=== PATIENT | female | born 1940 | race Caucasian/White ===

== ENCOUNTER 2024-02-09 07:46 | Outpatient (CLI) | payer MEDICARE, SELFPAY ==
--- NOTE | 2024-02-09 08:01 | CT_ITS ---
WS: [id number] CT HEAD NONCONTRAST HISTORY: SHORT TERM MEMORY LOSS TECHNIQUE: Contiguous axial imaging performed through the brain. Bone and soft tissue windows. Sagitt al and coronal reformats reviewed. All CT scans at [facility] use at least one of these dose optimization techniques: automated exposure control; mA and/or kV adjustment per patient size (includ es targeted exams where dose is matched to clinical indication); or iterative reconstruction. DLP: 1149.98 mGy.cm COMPARISON: 02/06/2018 No acute intracranial hemorrhage, midline shift or mass effect. Mild to moderate bilateral symmetric atrophy with progression since 02/06/2018. Moderate areas of decre ased attenuation in the white matter have also progressed since the prior exam. No large territory in farct. Mild cerebellar atrophy. Ventricles: Normal size with no hydrocephalus. No inferior displacement of the cerebellar tonsils. Paranasal sinuses: As visualized are clear. Mastoid air cells: Well pneumatized. Calvarium and scalp: Skull is intact with no soft tissue edema or swelling. Advanced atherosclerotic calcified plaque in the intracranial carotid arteries. CT/CT head wo con* [id number] IMPRESSION: 1. No acute intracranial hemorrhage or edema. 2. Mild to moderate symmetric cerebral and cerebellar atrophy has progressed s anusha 2018. 3. Moderate progression of small vessel ischemic changes in the white matter.
== END 2024-02-09 07:47 | disposition home or self-care (01) ==
LOC: RAD 07:48
PROVIDERS: Family Provider Family Medicine; PCP Family Medicine; Visit Provider Family Medicine
DX: G31.9 Degenerative disease of nervous system, unspecified (principal); I67.82 Cerebral ischemia; R41.3 Other amnesia; H34.8110 Central retinal vein occlusion, right eye, with macular edema
CPT/HCPCS: 70450

== ENCOUNTER 2024-06-14 13:56 | Emergency (ER) | payer MEDICARE, SELFPAY ==
[2024-06-14 13:57] VITALS: BP 104/72; PULSE 79; RESP 16; TEMP 36.7; O2SAT 94; BMI 37.8
[2024-06-14] MEDS: oxymetazoline 0.05% Nasal Spray 15 mL 2 SPRAY NOSTRIL-B (14:16)
--- NOTE | 2024-06-14 14:16 | W.ED.EPISTAX ---
HPI - Epistaxis General: Chief complaint: Epistaxis Stated complaint: nose bleed Time Seen by Provider: 06/14/24 14:00 Source: patient and family Mode of arrival: ambulatory Limitations: no limitations History of Present Illness: Patient is an 83-year-old female presents to ED today for evaluation of epistaxis that began just prior to arrival. No known injury or trauma. States she has had nosebleeds in the past that resolved conservatively. She is not hypertensive upon arrival. She has had no headache. No fever. No recent illness. Significant other states 2 days ago she did have a minor fall while in her garden but states she fell more onto her left hip and leg and did not injure anything as she has been ambulatory without difficulty or assistance since the fall. She denies striking her head/face. MD complaint: epistaxis Location: left nostril Onset (ago): hour(s) Duration: constant Context: history of previous Associated symptoms: Reports no associated symptoms; Deny fever(s), headache(s), sinus pain or vomiting Treatment prior to arrival: nose pinching Related Data Home Medications ?Medication ?Instructions ?Recorded ?Confirmed dorzolamide 22.3 mg-timolol 6.8 1 drp ophthalmic (eye) BID 06/14/24 06/14/24 mg/mL eye drops latanoprost 0.005 % eye drops 1 drp ophthalmic (eye) QPM 06/14/24 06/14/24 lisinopril 10 mg tablet 10 mg PO DAILY 06/14/24 06/14/24 Allergies Allergy/AdvReac Type Severity Reaction Status Date / Time No Known Allergies Allergy Verified 06/14/24 14:03 Review of Systems Const: Denies: fever(s), chills, body aches, fatigue or malaise Eyes: Denies: change in vision, blurry vision, photophobia, floaters or seeing flashes ENMT: Reports: epistaxis; Denies: throat pain, uvular edema, enlarged tonsils, odynophagia, mouth pain, swelling of lips/tongue, oral sores, bleeding gums, dental pain, ear or mastoid pain, ear discharge, nasal congestion or sinus pain Card: Denies: chest pain Resp: Denies: dyspnea GI: Denies: nausea or vomiting Musc: Denies: neck pain, back pain, extremity pain, extremity swelling or joint swelling Neuro: Denies: headache(s) or dizziness Physical Exam Const: COMMON NORMALS: no acute distress, patient oriented x3, no limitations, alert and well nourished GENERAL APPEARANCE: cooperative ORIENTATION/CONSCIOUSNESS: Yes awake, Yes oriented to person, Yes oriented to place and Yes oriented to time HENMT: COMMON NORMALS: normocephalic, atraumatic and Normal external nose present HEAD & SCALP: normal to inspection, normocephalic and atraumatic FACE & SINUS: normal facial exam NOSE: Normal external nose present, Normal septum present and Epistaxis present on the left anterior source and active bleeding MOUTH: Normal oral and palatal mucosa present, lip normal, tongue normal and Normal salivary glands and ducts present THROAT: posterior oropharynx normal and tonsils normal; no uvular edema Eye: GENERAL EYE: appearance normal, both eyes and all related structures Neck/C-Spine: GENERAL: Yes normal visual inspection, No anterior neck swelling and No submandibular swelling Resp: COMMON NORMALS: normal respiratory effort and clear to auscultation bilaterally AUSCULTATION: clear to auscultation bilaterally Cardio: COMMON NORMALS: regular rate and regular rhythm RATE: regular rate RHYTHM: regular rhythm Extremity: GENERAL: Yes normal exam except as noted Neuro: RUDDY COMA SCALE: document GCS findings Ruddy coma scale eye opening: Spontaneous Erwin coma scale verbal response: Orientated Ruddy coma scale motor response: Obey commands Erwin coma scale total score: 15 COMMON NORMALS: patient oriented x3, CN's II-XII intact bilaterally, moves all extremities, no focal motor deficits, no sensory deficits noted and gait normal SENSORIUM/ORIENTATION: Yes alert, Yes oriented to person, Yes oriented to place and Yes oriented to time Procedures Epistaxis Control Nostril: left Nose Prepped With: oxymetazoline Direct Inspection: yes and anterior source identified Clots Removed by: blowing nose Cautery Used: none Device Inserted: hemostatic balloon Patient Tolerated Procedure: well Course Vital Signs: Vital signs: Vital Signs Temperature 98.0 F 06/14/24 13:57 Pulse Rate 79 06/14/24 13:57 Respiratory Rate 16 06/14/24 13:57 Blood Pressure 104/72 06/14/24 13:57 Pulse Oximetry 94 06/14/24 13:57 Oxygen Delivery Me thod Room Air 06/14/24 13:57 MDM - Epistaxis Medical Decision Making Bleeding stopped here after hemostatic balloon placed. She was watched for 30+ mintues and no further bleeding. Will leave balloon in place 72 hours and then she can have this removed. Return precautions discussed. Differential Diagnosis Likely anterior epistaxis Medical Records I reviewed the patient's medical records. No radiology studies performed this visit Discharge Plan Discharge Patient Disposition: Home Clinical Impression: Epistaxis Condition: Stable Prescriptions: No Action latanoprost 0.005 % drops 1 drp ophthalmic (eye) QPM lisinopril 10 mg tablet 10 mg PO DAILY dorzolamide-timolol 22.3-6.8 mg/mL drops 1 drp ophthalmic (eye) BID Discharge Orders: Discharge ED (Routine); Ordered 06/14/24 Ordered By: Anabell Navarro Referrals: Gilberto Clemens MD [Primary Care Provider, Family Practice] Tim Schuster DO [Family Provider, Emergency Medicine] Patient Instructions: Nosebleed (ED), Epistaxis - Adult Activity Restrictions/Additional Instructions: As we discussed, nasal packing needs to stay in over the next 72 hours. It can then removed at that time. Primary care can do this or it also may be able to be completed through a walk-in clinic. You may also return to the emergency department for this service. She may return sooner for any further bleeding that she cannot get controlled at home or any other concerns she may have. Print Language: [place] Citizen Coding Level of Care Code ED Garment Presser for Magy Macias
[2024-06-14 16:02] VITALS: BP 207/119; PULSE 87; RESP 16; O2SAT 94
== END 2024-06-14 16:02 | disposition home or self-care (01) ==
PROVIDERS: Emergency Provider Physician Assistant; Family Provider Family Medicine; PCP Family Medicine
DX: R04.0 Epistaxis (principal)
CPT/HCPCS: 99283; 99291; J9999

== ENCOUNTER 2024-12-15 03:48 | Emergency (ER) | payer MEDICARE, SELFPAY ==
--- OUTSIDE RECORDS SUMMARY | 2024-12-15 03:56 | XMS_ITS | Data Portability ---
[facility] Address [address] [address] Care Team Providers Care Microbiology Director Name Role Phone ANDREW WIN Primary Care Provider Assessment No assessment recorded. Plan of Treatment Reminders Order Date Submit Date Provider Last Modified By Organization Details Last Modified Time Details Appointments None recorded. Lab None recorded. Referral calender worker helper referral [address] [place] [address] Podiatry, [address] [place] [address], [phone], 5 12:28:46 Procedures None recorded. Surgeries None recorded. Imaging XR, ankle, 3 or more view [address] [place] [address] ([facility]), [address] [place] [address], [phone], 5 07:36:13 XR, foot, 3 or more view [address] [place] [address], [address] [place] [address], [phone], 5 16:56:16 Medication Orders None recorded. Patient TargetsNo targets recorded. Patient InstructionsNo instructions recorded. Reason for Referral Program Manager Environmental Planning Referral for Pain in left foot Referring Physician: Dayanara Charles, Family Medicine, Encounter Date: 06/25/2024 Results Created Date Observation Date Name Description Value Unit Range Abnormal Flag Note LastModifiedBy Organization Detail LastModifiedTime 06/26/19 25 XR, ankle , 3 or more view No observ ation record ed. [facility] ([facility]) [address] [place], [address], 06/25/2024 11:34:08 06/26/19 25 06/25/2024 XR, foot, 3 or more view No observ ation record ed. [address] [place], [address], 06/26/2024 10:08:05 06/26/19 25 06/25/2024 XR, foot, 3 or more view No observ ation record ed. [address] [place], [address], 06/26/2024 10:08:06 Result Notes None recorded. Problems Name Problem SNOMED Code Status Onset Date Resolution Date Notes Provider Name and Address Organization Details Recorded Time Total hysterect charlene Active 2005 Hysterecto my, Total; r/t endometrio sis s; 08/10/2005 2:56PM by Poly Beaver LPN, Office Visit; Promoted; acuity set as *; Not Available [facility] 3 03:10:49 Asthma 196599676 Active 2005 Asthma; 08/10/2005 2:56PM by Sanjeev Fatima MD, Office Visit; Promoted; acuity set as *; Not Available [facility] 3 03:10:49 Gastroeso phageal reflux disease 356746190 Active 2005 Esophageal Reflux; 08/10/2005 2:56PM by Poly Beaver LPN, Office Visit; Promoted; acuity set as *; Not Available [facility] 3 03:10:49 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 Medical Equipment None Reported. Allergies Allergen ID Allergen Name Allergen Category Reaction Reaction Severity Criticality Documentation Date Start Date Code Code System Note Provider Name and Address Organization Details Recorded Time 62490 aspirin medicatio n other Not available Not available 09/03/2022 1191 RxNorm React ion: HX of Ulcer ; Comme nt: Recor ded 09/21 3:44P M by Lisa Mann LPN, Offic e Visit ; Rony calix; Carlos grover ce: *; ; Not Available [facility] 3 02:23:54 Medications Name Sig Start Date Stop Date Status Note LastModified by Organization Details LastModified Time doxycyclin e hyclate 100 mg capsule two times daily 06/25 completed Recorded 1 8:43AM by KENDALL Corbin, Historica l Summary; Refill Quantity: 0; Not Available Not Available Not Available prednisone 20 mg tablet two times daily 06/25 completed Recorded 1 8:44AM by KENDALL Corbin, Historica l Summary; Refill Quantity: 0; Not Available Not Available Not Available Synthroid 50 mcg tablet QD 2004 active Recorded 8 3:45PM by Luís Mann LPN, Office Visit; Refill Quantity: 90; Tab; Not Available Not Available Not Available Spiriva with HandiHaler 18 mcg and inhalation capsules QD 2004 active Recorded 8 3:45PM by Luís Mann LPN, Office Visit; Refill Quantity: 90; Cap; Not Available Not Available Not Available Aleve daily 06/25 completed 0; Recorded 8 3:52PM by Luís Mann LPN, Office Visit; Not Available Not Available Not Available Lipitor QD 2004 active Recorded 8 3:45PM by Luís Mann LPN, Office Visit; Refill Quantity: 90; Tab; Not Available Not Available Not Available Prilosec QD active Recorded 8 3:45PM by Luís Mann LPN, Office Visit; Refill Quantity: 0; Not Available Not Available Not Available Combivent QID/AL N 2003 active Recorded 5 2:44PM by Sanjeev Fatima MD, Office Visit; Refill Quantity: 3; Aerosol; Not Available Not Available Not Available Micardis HCT QD 2004 active Recorded 5 2:44PM by Sanjeev Fatima MD, Office Visit; Refill Quantity: 90; Tab; Not Available Not Available Not Available Vitals Date Recorded Body height Body mass index (BMI) Body weight Oxygen saturation Oxygen saturation in Arterial blood by Pulse oximetry Heart rate Body temperature Systolic And Diastolic Provider Name and Address Organization Details Last Updated DateTime 5 162.56 cm 28.2 kg/m2 45736.8 5 g 98 % 98 % 78 /min 98.4 [degF] 142/60 mm[Hg] Natalie Abarca [facility] 5 11:32:41 Social History Question Answer Notes LastModified by Organizat ion Details LastModified Time Tobacco Smoking Status Never Smoker Natalie Abarca [facility] 06/25/2024 11:28:12 What Was The Date Of Your Most Recent Tobacco Screening? 06/25/2024 [email or web address] Information not available 06/25/2024 Sex: Unknown Functional Status None recorded. Mental Status None recorded. Family History Nothing Reported. Medical History No medical history recorded. Gynecological HistoryNo gynecological history recorded. Obstetrics History GPAL:G 0 P 0 0 0 0 Immunizations Vaccine Type Date Status Note Provider Nam e and Address Organization Details Recorded Time COVID-19, mRNA, LNP-S, PF, 30 mcg/0.3 mL dose 1 completed Not Available [facility] 06/25/2024 11:10:15 COVID-19, mRNA, LNP-S, PF, 30 mcg/0.3 mL dose 1 completed Not Available [facility] 06/25/2024 11:10:15 COVID-19, mRNA, LNP-S, PF, 30 mcg/0.3 mL dose 1 completed Not Available [facility] 06/25/2024 11:10:15 Influenza, split virus, quadrivalent, PF 2 completed Not Available [facility] 06/25/2024 11:10:15 pneumococcal polysaccharide PPV23 2 completed Not Available [facility] 06/25/2024 11:10:15 Influenza, split virus, quadrivalent, PF 3 completed Not Available [facility] 06/25/2024 11:10:15 Influenza, adjuvanted, trivalent, PF 4 completed Not Available [facility] 06/25/2024 11:10:15 Influenza, split virus, trivalent, preservative 6 completed Not Available [facility] 09/03/2022 02:32:38 Past Encounters Encounter ID Performer Location Encounter Start Date Encounter Closed Date Diagnosis/Indication Diagnosis SNOMED-CT Code Diagnosis ICD10 Code Diagnosis IMO Codes Diagnosis Note [id number] [facility] ([facility] [address] [place] [phone] 06/25/2024 11:09:38 06/25/2024 12:48:41 Pain in left foot [id number] 98737 M79.672 [id number] Will send X ray to radiology. Walking boot applied. Patient declines crutches, walker or scooter at this time. RICE. OTC tylenol as needed for pain. RTC with any new or worsening symptoms. Acute ankle pain 5264551 011 9105 M25.572 [id number] Health Concerns Section Related Observation LastModified by Organization Detai ls LastModified Time None Recorded Concern Status LastModified by Organization Details LastModified Time None Recorded Advance Directives Directive None Recorded Payers Insurance Date Sequence Insurance Name Policy Number Policy Ba Covered Member ID Ba Member ID Guarantor Name 06/25/2024 1 [id number] [id number] Edilia Dahl [id number] Edilia Zamora Hesham 06/25/2024 1 [place]A [place] - [place]PO) [id number] Edilia Dahl [id number] Edilia Dahl Notes Date Note Type Note Provider Name and Address Organization Details Recorded Time 06/25/2024 text/html ROS as noted in the HPI Walk inx 1 week ago while standing left ankle twisted, heard pop c/o continued pain and swelling. Patient complains of lateral foot pain with weight bearing. Continues to have increasing swelling with use. DAYANARA CHARLES, DIAGNOSTIC IMAGING MANAGER [address] [place] [address], [phone], [facility] 06/25/2024 12:41:05 OBGyn Episode No OBEpisode recorded.
--- OUTSIDE RECORDS SUMMARY | 2024-12-15 03:56 | XMS_ITS | Clinical Summary ---
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, Right elbow 2014 Right elbow pain 10/06/2014 Elbow fracture 10/06/2014 Family History Medical History Relation Name Comments Heart Surgery Mother Relation Name Status Comments Mother Social History Tobacco Use Types Packs/Day Years Used Date Smoking Tobacco: Never Smokeless Tobacco: Never Alcohol Use Standard Drinks/Week Comments No 0 (1 standard drink = 0.6 oz pur e alcohol) Comments Unknown Sex and Gender Information Value Date Recorded Sex Assigned at Not on file Legal Sex Female 11:30 AM CDT Gender Identity Not on file Sexual Orientation Not on file Last Filed Vital Signs Vital Sign Reading Time Taken Comments Blood Pressure 101/74 02/11/2015 10:17 AM SUPERVISOR TRAIN OPERATIONS Pulse 81 02/11/2015 10:17 AM SUPERVISOR TRAIN OPERATIONS Temperature 36.4 C (97.6 F) 11/13/2014 5:15 PM CDT Respiratory Rate 19 11/13/2014 2:30 PM CDT Oxygen Saturation 97% 11/13/2014 5:25 PM CDT Inhaled Oxygen Concentration - - Weight 95.3 kg (210 lb) 02/11/2015 10:17 AM SUPERVISOR TRAIN OPERATIONS Height 160 cm (5' 3 ) 02/11/2015 10:17 AM SUPERVISOR TRAIN OPERATIONS Body Mass Index 37.2 02/11/2015 10:17 AM SUPERVISOR TRAIN OPERATIONS Plan of Treatment Health Maintenance Due Date Last Done Comments DTAP/TDAP/TD VACCINES (1 - Tdap) 1961 PNEUMOCOCCAL VACCINE 50+ YEARS (1 of 1 - PCV) 11/11/18 93 ZOSTER VACCINE (1 of 2) 1992 OSTEOPOROSIS SCREENING 11/12/2007 RSV VACCINE (60+ or ) (1 - 1-dose 75+ series) 2017 INFLUENZA VACCINE (#1) 2024 Medical Devices Implanted Type Area Do All Operator Device Identifier Shelf Expiration Date Model / Serial / Lot Pro-Dense 4ml [id number] - Sn/A Implanted:Qty: 1 on 11/13/2014 by Hector Macias MD at [facility] Biological Right: Olecranon [employer] 04/06/2015 [id number] / N/A / [id number] 3.5mm X 24mm Cortical Screw Implanted:Qty: 1 on 11/13/2014 by Hector Macias MD at [facility] Right: Olecranon [employer] 00-2348- 024-35 / N/A / [id number]#[id number] 3.5mm X 32mm Cortical Screw Implanted:Qty: 1 on 11/13/2014 by Hector Macias MD at [facility] Right: Olecranon [employer] 00-2348- 032-35 / N/A / LOAD#[id number] 3.5mm X 34mm Cortical Screw Implanted:Qty: 1 on 11/13/2014 by Hector Macias MD at [facility] Right: Olecranon [employer] 00-2348- 034-35 / N/A / LOAD#[id number] 3.5mm X 38mm Cortical Screw Implanted:Qty: 1 on 11/13/2014 by Hector Macias MD at [facility] Right: Olecranon [employer] 00-2348- 038-35 / N/A / LOAD#[id number] Explanted Type Area Do All Operator Device Identifier Shelf Expiration Date Model / Serial / Lot Plate Explanted:Qty: 1 on 11/13/2014 by Hector Macias MD at [facility] Right: Olecranon Screws Explanted:Qty: 14 on 11/13/2014 by Hector Macias MD at [facility] Right: Olecranon K-Wire [id number] Explanted:Qty: 1 on 11/13/2014 by Hector Macias MD at [facility] Right: Olecranon [employer] 00-4901-01 2-15 / N/A / LOAD#[id number] Insurance [employer] [id number] HMO Advance Directives For more information, please contact: [phone] * Full Code (Latest Code Status on File) Date Activated Date Inactivated Comments 11/13/2014 8:44 AM 11/13/2014 7:53 PM Care Teams Paper Twister Relationship Specialty Start Date End Date Tim Schuster DO PCP - General Family Practice 10/10/14
--- OUTSIDE RECORDS SUMMARY | 2024-12-15 03:56 | XMS_ITS | Clinical Summary ---
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, Right elbow 2014 Elbow fracture 10/06/2014 Right elbow pain 10/06/2014 Family History Medical History Relation Name [...] at Not on file Legal Sex Female 5:53 AM CORE FITTER Gender Identity Not on file Sexual Orientation Not on file Last Filed Vital Signs Vital Sign Reading Time Taken Comments Blood Pressure 101/74 02/11/2015 10:17 AM CORE FITTER Pulse 81 02/11/2015 10:17 AM CORE FITTER Temperature 36.4 C (97.6 F) 11/13/2014 5:15 PM CDT Respiratory Rate 19 11/13/2014 2:30 PM CDT Oxygen Saturation - - Inhaled Oxygen Concentration - - Weight 95.3 kg (210 lb) 02/11/2015 10:17 AM CORE FITTER Height 160 cm (5' 3 ) 02/11/2015 10:17 AM CORE FITTER Body Mass Index 37.2 02/11/2015 10:17 AM CORE FITTER Plan of Treatment Health Maintenance Due Date Last Done Comments DTAP/TDAP/TD VACCINES (1 - Tdap) 1961 PNEUMOCOCCAL VACCINE 50+ YEARS (1 of 1 - PCV) 11/11/18 93 ZOSTER VACCINE (1 of 2) 1992 OSTEOPOROSIS SCREENING 11/12/2007 RSV VACCINE (60+ or ) (1 - 1-dose 75+ series) 2017 INFLUENZA VACCINE (#1) 2024 Medical Devices Implanted Type Area Head Of Insight Device Identifier Shelf Expiration Date Model / Serial / Lot Pro-Dense 4ml [id number] - Sn/A Implanted:Qt y: 1 on 11/13/2014 by Hector Macias MD Biological Right: Emelia [employer] 04/06/2015 [id number] / N/A / [id number] 3.5mm X 24mm Cortical Screw Implanted:Qt y: 1 on 11/13/2014 by Hector Macias MD Right: Olecranon [employer]ARAS [employer] 00-2348-0 24-35 / N/A / LOAD#[id number] 3.5mm X 32mm Cortical Screw Implanted:Qt y: 1 on 11/13/2014 by Hector Macias MD Right: Olecranon [employer] 00-2348-0 32-35 / N/A / LOAD#[id number] 3.5mm X 34mm Cortical Screw Implanted:Qt y: 1 on 11/13/2014 by Hector Macias MD Right: Olecranon [employer] 00-2348-0 34-35 / N/A / LOAD#[id number] 3.5mm X 38mm Cortical Screw Implanted:Qt y: 1 on 11/13/2014 by Hector Macias MD Right: Olecranon [employer] 00-2348-0 38-35 / N/A / LOAD#[id number] Explanted Type Area Head Of Insight Device Identifier Shelf Expiration Date Model / Serial / Lot K-Wire [id number] Explanted:Qty: 1 on 11/13/2014 by Hector Macias MD Right: Olecranon [employer] 00-4901-01 03-23 / N/A / LOAD#[id number] Plate Explanted:Qty: 1 on 11/13/2014 by Hector Macias MD Right: Olecranon Screws Explanted:Qty: 14 on 11/13/2014 by Hector Macias MD Right: Emelia Care Teams Line Palletizer Relationship Specialty Start Date End Date Tim Schuster DO PCP - General Family Practice 10/10/14
--- NOTE | 2024-12-15 04:07 | ECG_ITS ---
[employer] Test Date: 2024-12-15 Pat Name: Rossana Dahl Department: Room: Gender: Female Networking Specialist: : 1940 Requested By: Aakash Young Order Number: [id number] Delta MD: Ashly Geller M.D. Measurements Intervals [place] Rate: 70 P: 72 [place]: 182 QRS: -40 QRSD: 80 T: 94 QT: 387 QTc: 419 Interpretive Statements SINUS RHYTHM LEFT AXIS DEVIATION [QRS AXIS < -30] POSSIBLE RIGHT VENTRICULAR CONDUCTION DELAY [RSR (QR) IN V1/V2] NONSPECIFIC T-WAVE ABNORMALITY Compared to ECG 02/06/2018 01:00:53 T-wave abnormality now present Myocardial infarct finding no longer present Electronically Signed On 12-15-2024 20:19:30 RECEIVING ROOM CLERK by Ashly Geller M.D. [id number]
[2024-12-15 04:09] VITALS: BP 171/87; PULSE 69; RESP 18; TEMP 36.6; O2SAT 91; BMI 36.6
--- NOTE | 2024-12-15 04:58 | ED_ITS ---
Documented by User: Aakash Gardner, 12/15/24 15:39 HPI - Nausea/Vomiting/Diarrhea 2 General: Chief complaint: Nausea/Vomiting/Diarrhea Stated complaint: N/V,diahrrea,chills Time Seen by Provider: 12/15/24 04:21 History of Present Illness: Patient is an 84-year-old female who presents with acute onset of nausea and vomiting that began at approximately 1:00 AM today. She reports having vomited 'several' times since symptom onset. Patient also complains of generalized pain, particularly in her legs with 'a lot of leg cramps.' She denies that anyone else in her household is experiencing similar symptoms. Patient and her caregiver report that they consumed the same food yesterday, but only the patient became ill. She reports feeling 'so dry' Patient was feeling well yesterday with no prodromal symptoms. T Patient denies any specific food triggers and reports no recent travel or known sick contacts. Related Data Home Medications ?Medication ?Instructions ?Recorded ?Confirmed dorzolamide 22.3 mg-timolol 6.8 1 drp ophthalmic (eye) BID 06/14/24 06/14/24 mg/mL eye drops latanoprost 0.005 % eye drops 1 drp ophthalmic (eye) Q PM 06/14/24 06/14/24 lisinopril 10 mg tablet 10 mg PO DAILY 06/14/2410/31 Previous Rx's ?Medication ?Instructions ?Recorded cephalexin 500 mg capsule 500 mg PO TID 7 days #21 cap s 12/15/24 ondansetron HCl 4 mg tablet 4 mg PO Q6H PRN nausea and 12/15/24 vomiting #20 tabs Allergies Allergy/AdvReac Type Severity Reaction Status Date / Time No Known Allergies Allergy Verified 06/14/24 14:03 Physical Exam 2 Const: GENERAL APPEARANCE: cooperative and ill appearing (mildly); not frail appearing HENMT: COMMON NORMALS: normocephalic, atraumatic and Normal external nose present HEAD & SCALP: normocephalic and atraumatic FACE & SINUS: normal facial exam and face symmetric NOSE: Normal external nose present Eye: COMMON NORMALS: Equal, round and reactive pupils present and EOMs intact bilaterally PUPIL: Yes Equal, round and reactive pupils present Neck/C-Spine: GENERAL: Yes trachea midline Chest: CHEST: Yes Symmetrical chest wall rise Resp: COMMON NORMALS: normal respiratory effort, No retractions, No use of accessory muscles and clear to auscultation bilaterally AUSCULTATION: clear to auscultation bilaterally Cardio: COMMON NORMALS: regular rate and regular rhythm RATE: regular rate RHYTHM: regular rhythm GI: COMMON NORMALS: Normal to inspection, nondistended, normoactive bowel sounds present PALPATION: Yes Tenderness to palpation present (GI) (Epigastric) Extremity: COMMON NORMALS: no pedal edema Neuro: RUDDY COMA SCALE: document GCS findings [place] coma scale eye opening: Spontaneous Ruddy coma scale verbal response: Orientated [place] coma scale motor response: Obey commands Ruddy coma scale total score: 15 S ENSORY EXAM: Yes extremities (intact) Psych: COMMON NORMALS: speech normal SPEECH: Yes normal speech Course 2 Vital Signs: Vital signs: Vital Signs Temperature 98 F 12/15/24 04:09 Pulse Rate 90 12/15/24 08:40 Respiratory Rate 18 12/15/24 04:09 Blood Pressure 141/94 12/15/24 08:40 Pulse Oximetry 91 12/15/24 08:40 Oxygen Delivery Me thod Nasal Cannula 12/15/24 06:40 Oxygen Flow Rate 3 12/15/24 06:40 MDM - Nausea/Vomiting/Diarrhea Medical Decision Making Acute Gastroenteritis: - Likely viral in etiology given the acute onset and absence of sick contacts - Administered anti-nausea medication in the ED - Plan for IV fluid hydration given symptoms of dehydration Patient with multiple episodes of vomiting at home, and here associated with epigastric pain. She is given IV fluid bolus, 30 mL/kg, with antiemetics. White blood cell count is 13. However her CRP is 3. Lipase is normal. Liver enzymes are normal. BMP is normal. Lactic acid is slightly elevated CT of the abdomen pelvis is pending. Should be checked out to the oncoming physician at shift change. Lab Data 12/15/24 05:09 12/15/24 05:09 Radiology Impressions Abdomen/Pelvis CT 12/15/24 05:36 IMPRESSION: 1. No acute findings. 2. Thickened endometrium measuring 9 mm could represent endometrial hyperplasia, though neoplasm can not be excluded based on this examination. Consider direct visualization and/or MRI pelvis without and with contrast for further evaluation. 3. Gas in the vagina. Correlate for recent instrumentation. 4. Cholelithiasis. 5. Small right renal cyst. 6. Small hiatal hernia. COMMENTS: Consistent with the [employer]'s Incidental Findings Committee white paper (J Am Gabriela Radiol 2018): Any incidental renal lesion less than 1 cm or classified as too small to characterize, or any incidental cystic renal lesion characterized as simple-appearing, is likely benign. No follow-up imaging is recommended for these lesions per consensus recommendations based on imaging criteria. Chest X-Ray 12/15/24 07:55 IMPRESSION: Low lung volumes with mild bibasilar atelectasis. Otherwise no acute findings. Laboratory Results WBC 13.44 10^3/uL (3.29-11.43) H 12/15/24 05:09 RBC 4.58 10^6/uL (3.85-5.65) 12/15/24 05:09 Hgb 14.40 g/dL (11.27-16.99) 12/15/24 05:09 Hct 44.0 % (36-47) 12/15/24 05:09 MCV 96.1 fl (85-98) 12/15/24 05:09 MCH 31.4 pg (27-33) 12/15/24 05:09 MCHC 32.7 g/dL (30-55) 12/15/24 05:09 RDW 13.0 % (12.1-15.1) 12/15/24 05:09 Plt Count 176 10^3/cmm (157-399) 12/15/24 05:09 MPV 12.0 fL (7.4-10.4) H 12/15/24 05:09 Neut % (Auto) 86.6 % 12/15/24 05:09 Lymph % (Auto) 5.4 % 12/15/24 05:09 [place] % (Auto) 7.1 % 12/15/24 05:09 Eos % (Auto) 0.4 % 12/15/24 05:09 Baso % (Auto) 0.2 % 12/15/24 05:09 Neut # (Auto) 11.64 10^3/uL (1.8-7.7) H 12/15/24 05:09 Lymph # (Auto) 0.7 10^3/uL (0.8-4.8) L 12/15/24 05:09 [place] # (Auto) 1.0 10^3/uL (0.2-0.9) H 12/15/24 05:09 Eos # (Auto) 0.1 10^3/uL (0.0-0.8) 12/15/24 05:09 Baso # (Auto) 0.0 10^3/uL (0.0-0.1) 12/15/24 05:09 Nucleated RBC % (auto) 0 % 12/15/24 05:09 Nucleated RBCs # 0.0 /100WBC 12/15/24 05:09 Sodium 141 mmol/L (136-145) 12/15/24 05:09 Potassium 4.0 mmol/L (3.5-5.1) 12/15/24 05:09 Chloride 102 mmol/L (98-107) 12/15/24 05:09 Carbon Dioxide 27 mmol/L (22-29) 12/15/24 05:09 Anion Gap 16.0 (5-19) 12/15/24 05:09 BUN 13 mg/dL (8-23) 12/15/24 05:09 Creatinine 0.7 mg/dL (0.5-0.9) 12/15/24 05:09 GFR Calculation Not Reportable 12/15/24 05:09 Glucose 156 mg/dL (65-115) H 12/15/24 05:09 Calculated Osmolality 295 mOsm/kg (285-295) 12/15/24 05:09 Lactic Acid 2.4 mmol/L (0.5-2.2) H 12/15/24 05:09 Calcium 9.6 mg/dL (8.5-10.5) 12/15/24 05:09 Total Bilirubin 0.7 mg/dL (0.15-1.2) 12/15/24 05:09 AST 13 U/L (0-32) 12/15/24 05:09 ALT 10 U/L (0-33) 12/15/24 05:09 Alkaline Phosphatase 100 U/L (35-105) 12/15/24 05:09 C-Reactive Protein 3.0 mg/L (0.0-4.9) 12/15/24 05:09 Total Protein 7.1 g/dL (6.6-8.7) 12/15/24 05:09 Albumin 4.5 g/dL (3.5-5.2) 12/15/24 05:09 Globulin 2.6 g/dL (1.3-4.6) 12/15/24 05:09 Lipase 20 U/L (13-60) 12/15/24 05:09 Urine Color Yellow (Yellow) 12/15/24 06:43 Urine Appearance Clear (CLEAR) 12/15/24 06:43 Urine pH 7.5 (5-7) 12/15/24 06:43 Ur Specific [place] 1.071 (1.005-1.030) H 12/15/24 06:43 Urine Protein Negative (Negative) 12/15/24 06:43 Urine Glucose (UA) Negative (Normal) 12/15/24 06:43 Urine Ketones Trace (Negative) 12/15/24 06:43 Urine Blood Negative (Negative) 12/15/24 06:43 Urine Nitrate Positive (Negative) A 12/15/24 06:43 Urine Bilirubin Negative (Negative) 12/15/24 06:43 Urine Urobilinogen 1.0 mg/dL (Negative) 12/15/24 06:43 Ur Leukocyte Esterase Negative (Negative) 12/15/24 06:43 Urine RBC 0-2 /hpf (0-2) 12/15/24 06:43 Urine WBC 21-50 /hpf (0-5) H 12/15/24 06:43 Ur Squamous Epith Cells 0-5 /hpf (0-5) 12/15/24 06:43 Amorphous Sediment Not Reportable 12/15/24 06:43 Urine Bacteria 3+ /hpf (NONE) H 12/15/24 06:43 Hyaline Casts 1.65 /lpf 12/15/24 06:43 Discharge Plan Discharge Patient Disposition: Home Clinical Impression: Cystitis, Gastroenteritis, Thickened endometrium Condition: Stable Prescriptions: New cephalexin 500 mg capsule 500 mg PO TID 7 Days Qty: 21 0RF ondansetron HCl 4 mg tablet 4 mg PO Q6H PRN (Reason: nausea and vomiting) Qty: 20 0RF No Action latanoprost 0.005 % drops 1 drp ophthalmic (eye) QPM lisinopril 10 mg tablet 10 mg PO DAILY dorzolamide-timolol 22.3-6.8 mg/mL drops 1 drp ophthalmic (eye) BID Discharge Orders: Discharge ED (Routine); Ordered 12/15/24 Ordered By: Tim Schuster Referrals: Gilberto Clemens MD [Primary Care Provider, Family Practice] Tim Schuster DO [Emergency Provider, Emergency Medicine] Discharge Diet: Clear Liquid Discharge Activity: Increase activity as tolerated Patient Instructions: Opioid Safety, Pain Management, Patient Portal & Amy Instructions Activity Restrictions/Additional Instructions: Thank you for choosing [facility] for your healthcare needs today. It is very important that you follow up as instructed or that you return to the Emergency Department should you have concerns or if your condition changes or worsens in any way. Emergency department visits are focused on emergent conditions, in some cases you may require further evaluation on an outpatient basis. You were seen in the emergency room with complaints of nausea vomiting and diarrhea as well as frequency of urination. While you are here we also noted that your oxygen level was somewhat low. Laboratory test showed an elevated white count and increased lactic acid and signs of a bladder infection we had recommended that you remain on observation to receive IV fluids and IV antibiotics you declined and preferred to go home we will discharge home with oral cephalexin 1 pill 3 times a day for 7 days clear liquid diet for the next 24 to 48 hours you can advance as tolerated. We also gave you ondansetron to use for nausea and vomiting. If you change your mind or your symptoms get worse you are welcome to return to the emergency room. On the CT was also noted the endometrium is mildly thickened. This should be followed up with your primary care doctor for further evaluation for a cause of the thickening. While you are in the emergency room we also noticed your oxygen sats at times were low particular when you are laying down. You should follow-up with your primary care doctor regarding this you may need to be evaluated for sleep apnea. (Please note that included in your discharge packet is information concerning opioid safety and pain management. This information is given to all patients were discharged from the ER regardless of their discharge diagnosis or the medicines they usually take or are prescribed.) Print Language: Ukrainian Sign Out Sign Out Data: Patient Sign Out occurred on 12/15/24 at 06:21. Patient's care was discussed, and care was transferred from Aakash Gardner DO to Tim Schuster DO. Coding Level of Care Code ED Dispatcher Service Or Work for Chg Fwd Documented by User: Tim Schuster DO 12/15/24 08:37 HPI - Nausea/Vomiting/Diarrhea 2 General: Chief complaint: Nausea/Vomiting/Diarrhea Stated complaint: N/V,diahrrea,chills Time Seen by Provider: 12/15/24 04:21 Related Data Home Medications ?Medication ?Instructions ?Recorded ?Confirmed dorzolamide 22.3 mg-timolol 6.8 1 drp ophthalmic (eye) BID 06/14/24 06/14/24 mg/mL eye drops latanoprost 0.005 % eye drops 1 drp ophthalmic (eye) Q PM 06/14/24 06/14/24 lisinopril 10 mg tablet 10 mg PO DAILY 06/14/2410/31 Previous Rx's ?Medication ?Instructions ?Recorded cephalexin 500 mg capsule 500 mg PO TID 7 days #21 cap s 12/15/24 ondansetron HCl 4 mg tablet 4 mg PO Q6H PRN nausea and 12/15/24 vomiting #20 tabs Allergies Allergy/AdvReac Type Severity Reaction Status Date / Time No Known Allergies Allergy Verified 06/14/24 14:03 Physical Exam 2 Neuro: RUDDY COMA SCALE: document GCS findings Ruddy coma scale total score: 15 Course 2 Vital Signs: Vital signs: Vital Signs Temperature 98 F 12/15/24 04:09 Pulse Rate 90 12/15/24 08:40 Respiratory Rate 18 12/15/24 04:09 Blood Pressure 141/94 12/15/24 08:40 Pulse Oximetry 91 12/15/24 08:40 Oxygen Delivery Me thod Nasal Cannula 12/15/24 06:40 Oxygen Flow Rate 3 12/15/24 06:40 MDM - Nausea/Vomiting/Diarrhea Medical Decision Making Acute Gastroenteritis: - Likely viral in etiology given the acute onset and absence of sick contacts - Administered anti-nausea medication in the ED - Plan for IV fluid hydration given symptoms of dehydration Patient with multiple episodes of vomiting at home, and here associated with epigastric pain. She is given IV fluid bolus, 30 mL/kg, with antiemetics. White blood cell count is 13. However her CRP is 3. Lipase is normal. Liver enzymes are normal. BMP is normal. Lactic acid is slightly elevated CT of the abdomen pelvis is pending. Should be checked out to the oncoming physician at shift change. Care assumed at change of shift. Patient has cystitis with leukocytosis mildly elevated lactate. Patient given a liter of fluids and initial dose of Zosyn. We offered admission for IV fluids continued IV antibiotics and antiemetics patient refuses. She prefers to treat as an outpatient will discharge home on cephalexin ondansetron as needed. Follow-up with her primary care doctor. Also noticed her oxygen sats were remained borderline low she appears to have some obesity induced hypopnea it improves when she sits up. Chest x-ray done no acute findings she does not have oxygen at home recommend she follow-up with her primary care doctor this as well. Also reviewed with patient that her endometrium is thickened and this needs to be follow-up with primary care for further evaluation. Medical Records I reviewed the patient's medical records. Lab Data I reviewed the patient's lab results. 12/15/24 05:09 12/15/24 05:09 Radiology Impressions Abdomen/Pelvis CT 12/15/24 05:36 IMPRESSION: 1. No acute findings. 2. Thickened endometrium measuring 9 mm could represent endometrial hyperplasia, though neoplasm can not be excluded based on this examination. Consider direct visualization and/or MRI pelvis without and with contrast for further evaluation. 3. Gas in the vagina. Correlate for recent instrumentation. 4. Cholelithiasis. 5. Small right renal cyst. 6. Small hiatal hernia. COMMENTS: Consistent with the [employer]'s Incidental Findings Committee white paper (J Am Gabriela Radiol 2018): Any incidental renal lesion less than 1 cm or classified as too small to characterize, or any incidental cystic renal lesion characterized as simple-appearing, is likely benign. No follow-up imaging is recommended for these lesions per consensus recommendations based on imaging criteria. Chest X-Ray 12/15/24 07:55 IMPRESSION: Low lung volumes with mild bibasilar atelectasis. Otherwise no acute findings. Laboratory Results WBC 13.44 10^3/uL (3.29-11.43) H 12/15/24 05:09 RBC 4.58 10^6/uL (3.85-5.65) 12/15/24 05:09 Hgb 14.40 g/dL (11.27-16.99) 12/15/24 05:09 Hct 44.0 % (36-47) 12/15/24 05:09 MCV 96.1 fl (85-98) 12/15/24 05:09 MCH 31.4 pg (27-33) 12/15/24 05:09 MCHC 32.7 g/dL (30-55) 12/15/24 05:09 RDW 13.0 % (12.1-15.1) 12/15/24 05:09 Plt Count 176 10^3/cmm (157-399) 12/15/24 05:09 MPV 12.0 fL (7.4-10.4) H 12/15/24 05:09 Neut % (Auto) 86.6 % 12/15/24 05:09 Lymph % (Auto) 5.4 % 12/15/24 05:09 [place] % (Auto) 7.1 % 12/15/24 05:09 Eos % (Auto) 0.4 % 12/15/24 05:09 Baso % (Auto) 0.2 % 12/15/24 05:09 Neut # (Auto) 11.64 10^3/uL (1.8-7.7) H 12/15/24 05:09 Lymph # (Auto) 0.7 10^3/uL (0.8-4.8) L 12/15/24 05:09 [place] # (Auto) 1.0 10^3/uL (0.2-0.9) H 12/15/24 05:09 Eos # (Auto) 0.1 10^3/uL (0.0-0.8) 12/15/24 05:09 Baso # (Auto) 0.0 10^3/uL (0.0-0.1) 12/15/24 05:09 Nucleated RBC % (auto) 0 % 12/15/24 05:09 Nucleated RBCs # 0.0 /100WBC 12/15/24 05:09 Sodium 141 mmol/L (136-145) 12/15/24 05:09 Potassium 4.0 mmol/L (3.5-5.1) 12/15/24 05:09 Chloride 102 mmol/L (98-107) 12/15/24 05:09 Carbon Dioxide 27 mmol/L (22-29) 12/15/24 05:09 Anion Gap 16.0 (5-19) 12/15/24 05:09 BUN 13 mg/dL (8-23) 12/15/24 05:09 Creatinine 0.7 mg/dL (0.5-0.9) 12/15/24 05:09 GFR Calculation Not Reportable 12/15/24 05:09 Glucose 156 mg/dL (65-115) H 12/15/24 05:09 Calculated Osmolality 295 mOsm/kg (285-295) 12/15/24 05:09 Lactic Acid 2.4 mmol/L (0.5-2.2) H 12/15/24 05:09 Calcium 9.6 mg/dL (8.5-10.5) 12/15/24 05:09 Total Bilirubin 0.7 mg/dL (0.15-1.2) 12/15/24 05:09 AST 13 U/L (0-32) 12/15/24 05:09 ALT 10 U/L (0-33) 12/15/24 05:09 Alkaline Phosphatase 100 U/L (35-105) 12/15/24 05:09 C-Reactive Protein 3.0 mg/L (0.0-4.9) 12/15/24 05:09 Total Protein 7.1 g/dL (6.6-8.7) 12/15/24 05:09 Albumin 4.5 g/dL (3.5-5.2) 12/15/24 05:09 Globulin 2.6 g/dL (1.3-4.6) 12/15/24 05:09 Lipase 20 U/L (13-60) 12/15/24 05:09 Urine Color Yellow (Yellow) 12/15/24 06:43 Urine Appearance Clear (CLEAR) 12/15/24 06:43 Urine pH 7.5 (5-7) 12/15/24 06:43 Ur Specific [place] 1.071 (1.005-1.030) H 12/15/24 06:43 Urine Protein Negative (Negative) 12/15/24 06:43 Urine Glucose (UA) Negative (Normal) 12/15/24 06:43 Urine Ketones Trace (Negative) 12/15/24 06:43 Urine Blood Negative (Negative) 12/15/24 06:43 Urine Nitrate Positive (Negative) A 12/15/24 06:43 Urine Bilirubin Negative (Negative) 12/15/24 06:43 Urine Urobilinogen 1.0 mg/dL (Negative) 12/15/24 06:43 Ur Leukocyte Esterase Negative (Negative) 12/15/24 06:43 Urine RBC 0-2 /hpf (0-2) 12/15/24 06:43 Urine WBC 21-50 /hpf (0-5) H 12/15/24 06:43 Ur Squamous Epith Cells 0-5 /hpf (0-5) 12/15/24 06:43 Amorphous Sediment Not Reportable 12/15/24 06:43 Urine Bacteria 3+ /hpf (NONE) H 12/15/24 06:43 Hyaline Casts 1.65 /lpf 12/15/24 06:43 XR interpretation done by ED provider, pending radiology final review ED provider radiology interpretation(s): Chest x-ray no acute findings significant obesity poor inspiration no congestive heart failure no localized infiltrate Discharge Plan Discharge Patient Disposition: Home Clinical Impression: Cystitis, Gastroenteritis, Thickened endometrium Condition: Stable Prescriptions: New cephalexin 500 mg capsule 500 mg PO TID 7 Days Qty: 21 0RF ondansetron HCl 4 mg tablet 4 mg PO Q6H PRN (Reason: nausea and vomiting) Qty: 20 0RF No Action latanoprost 0.005 % drops 1 drp ophthalmic (eye) QPM lisinopril 10 mg tablet 10 mg PO DAILY dorzolamide-timolol 22.3-6.8 mg/mL drops 1 drp ophthalmic (eye) BID Discharge Orders: Discharge ED (Routine); Ordered 12/15/24 Ordered By: Tim Schuster Referrals: Gilberto Clemens MD [Primary Care Provider, Family Practice] Tim Schuster DO [Emergency Provider, Emergency Medicine] Discharge Diet: Clear Liquid Discharge Activity: Increase activity as tolerated Patient Instructions: Opioid Safety, Pain Management, Patient Portal & Amy Instructions Activity Restrictions/Additional Instructions: Thank you for choosing [facility] for your healthcare needs today. It is very important that you follow up as instructed or that you return to the Emergency Department should you have concerns or if your condition changes or worsens in any way. Emergency department visits are focused on emergent conditions, in some cases you may require further evaluation on an outpatient basis. You were seen in the emergency room with complaints of nausea vomiting and diarrhea as well as frequency of urination. While you are here we also noted that your oxygen level was somewhat low. Laboratory test showed an elevated white count and increased lactic acid and signs of a bladder infection we had recommended that you remain on observation to receive IV fluids and IV antibiotics you declined and preferred to go home we will discharge home with oral cephalexin 1 pill 3 times a day for 7 days clear liquid diet for the next 24 to 48 hours you can advance as tolerated. We also gave you ondansetron to use for nausea and vomiting. If you change your mind or your symptoms get worse you are welcome to return to the emergency room. On the CT was also noted the endometrium is mildly thickened. This should be followed up with your primary care doctor for further evaluation for a cause of the thickening. While you are in the emergency room we also noticed your oxygen sats at times were low particular when you are laying down. You should follow-up with your primary care doctor regarding this you may need to be evaluated for sleep apnea. (Please note that included in your discharge packet is information concerning opioid safety and pain management. This information is given to all patients were discharged from the ER regardless of their discharge diagnosis or the medicines they usually take or are prescribed.) Print Language: Ukrainian Sign Out Sign Out Data: Patient Sign Out occurred on 12/15/24 at 06:21. Patient's care was discussed, and care was transferred from Aakash Gardner DO to Tim Schuster DO. Coding Level of Care Code ED Dispatcher Service Or Work for Magy Macias
[2024-12-15] MEDS: ondansetron 2 mg/ML SDV 2 mL 4 MG IVP (05:10)
[2024-12-15 05:13] VITALS: BP 181/84; PULSE 78; O2SAT 90
[2024-12-15 05:16] LABS: Hematocrit 44.0 % (36-47); Hemoglobin 14.40 g/dL (11.27-16.99); Mean Corpuscular HGB Conc 32.7 g/dL (30-55); Mean Corpuscular Hemoglobin 31.4 pg (27-33); Mean Corpuscular Volume 96.1 fl (85-98); Nucleated Red Blood Cells % 0 %; Platelet Count 176 10^3/cmm (157-399); Red Blood Count 4.58 10^6/uL (3.85-5.65); White Blood Count 13.44 10^3/uL (3.29-11.43)
[2024-12-15 05:35] LABS: Alanine Aminotransferase 10 U/L (0-33); Albumin Level 4.5 g/dL (3.5-5.2); Alkaline Phosphatase 100 U/L (35-105); Anion Gap 16.0 (5-19); Aspartate Amino Transferase 13 U/L (0-32); Blood Urea Nitrogen 13 mg/dL (8-23); Calcium 9.6 mg/dL (8.5-10.5); Carbon Dioxide 27 mmol/L (22-29); Chloride 102 mmol/L (98-107); Creatinine Clr Calc Pharmacy 56.7868; Globulin 2.6 g/dL (1.3-4.6); Glucose 156 mg/dL (65-115); Lipase 20 U/L (13-60); Osmolality Calculated 295 mOsm/kg (285-295); Potassium 4.0 mmol/L (3.5-5.1); Sodium 141 mmol/L (136-145); Total Protein 7.1 g/dL (6.6-8.7)
[2024-12-15 05:36] LABS: Lactic Sepsis W/Reflex 2.4 mmol/L (0.5-2.2)
--- NOTE | 2024-12-15 05:36 | CTR_ITS ---
PROCEDURE INFORMATION: Exam: CT Abdomen And Pelvis With Contrast Exam date and time: 12/15/2024 6:12 AM Age: 84 years old Clinical indication: Pain and abnormal findings; Abnormal lab test; Elevated wbc; Nausea and vomiting; Abdominal pain; Generalized; Diffuse abd pain with n/v/d. Leukocytosis. ; Additional info: Abdominal pain, leukocytosis TECHNIQUE: Imaging protocol: Computed tomography of the abdomen and pelvis with contrast. Radiation optimization: All CT scans at this facility use at least one of these dose optimization techniques: automated exposure control; mA and/or kV adjustment per patient size (includes targeted exams where dose is matched to clinical indication); or iterative reconstruction. Contrast material: OMNI 350; Contrast volume: 100 ml; Contrast route: INTRAVENOUS (IV); COMPARISON: No relevant prior studies available. RADIATION DOSE METRICS: Total DLP (mGy-cm): 949.17 FINDINGS: Diaphragm: Small sliding-type hiatal hernia. Liver: Normal. No mass. Gallbladder and biliary ducts: Cholelithiasis without CT evidence of acute cholecystitis. Pancreas: Normal. No ductal dilation. Spleen: Normal. No splenomegaly. Adrenal glands: Mild thickening of bilateral adrenal glands without discrete nodule. Kidneys and ureters: 1.1 cm right renal cortical cyst. No hydronephrosis. Stomach and bowel: Unremarkable. No obstruction. No mucosal thickening. Appendix: No evidence of appendicitis. Intraperitoneal space: Unremarkable. No free air. No significant fluid collection. Vasculature: Mild atherosclerotic aortoiliac calcifications. No abdominal aortic aneurysm. Lymph nodes: Unremarkable. No enlarged lymph nodes. Urinary bladder: Unremarkable as visualized. Reproductive: Small gas in the vagina. Endometrium measures up to 9 mm in thickness. Bones/joints: Grade 1 anterolisthesis at L5-S1. Advanced degenerative disc disease in the lower lumbar spine. Diffuse osseous demineralization. No acute osseous findings. Soft tissues: Unremarkable. CT/CT abdomen pelvis w con* [id number] IMPRESSION: 1. No acute findings. 2. Thickened endometrium measuring 9 mm could represent endometrial hyperplasia, though neoplasm can not be excluded based on this examination. Consider direct visualization and/or MRI pelvis without and with contrast for further evaluation. 3. Gas in the vagina. Correlate for recent instrumentation. 4. Cholelithiasis. 5. Small right renal cyst. 6. Small hiatal hernia. COMMENTS: Consistent with the [employer]'s Incidental Findings Committee white paper (J Am Gabriela Radiol 2018): Any incidental renal lesion less than 1 cm or classified as too small to characterize, or any incidental cystic renal lesion characterized as simple-appearing, is likely benign. No follow-up imaging is recommended for these lesions per consensus recommendations based on imaging criteria.
[2024-12-15 06:04] LABS: Reflex Lactate Order REFLEX LACTIC ORDERD
[2024-12-15 06:07] VITALS: BP 176/78; PULSE 81; O2SAT 93
[2024-12-15] MEDS: iohexol 350 mg/mL 500 mL Btl (per mL) IV (06:16)
[2024-12-15] MEDS: piperacillin-tazobactam 3.375 GM in sodium chloride 0.9% (plus) 50 ML IV (06:28)
[2024-12-15 06:40] VITALS: BP 143/59; O2SAT 95
[2024-12-15 07:21] LABS: Glucose Urine UA Negative (Normal); Nitrate Urine Positive (Negative)
[2024-12-15 07:23] LABS: Add Urine Microscopic? YES
[2024-12-15 07:30] VITALS: BP 158/60; PULSE 91; O2SAT 95
[2024-12-15 07:37] LABS: Specific Gravity, Urine 1.071 (1.005-1.030); UA Slide Review UA Slide Review Perf
--- NOTE | 2024-12-15 07:55 | XRR_ITS ---
PROCEDURE INFORMATION: Exam: XR Chest Exam date and time: 12/15/2024 8:00 AM Age: 84 years old Clinical indication: Dyspnea; Additional info: Dyspnea/hypoxia TECHNIQUE: Imaging protocol: Radiologic exam of the chest. Views: 1 view. COMPARISON: CR XR chest 1V [id number] 02/06/2018 12:44 AM FINDINGS: Lungs: Mild bibasilar atelectasis. No focal consolidation. Low lung volumes. Pleural spaces: Unremarkable. No pleural effusion. No pneumothorax. Heart/Mediastinum: Unremarkable. No cardiomegaly. Bones/joints: Unremarkable. XR/XR chest 1V portable [id number] IMPRESSION: Low lung volumes with mild bibasilar atelectasis. Otherwise no acute findings.
[2024-12-15 08:40] VITALS: BP 141/94; PULSE 90; O2SAT 91
== END 2024-12-15 08:41 | disposition home or self-care (01) ==
PROVIDERS: Emergency Medicine; Emergency Provider Family Medicine; Family Provider Family Medicine; PCP Family Medicine
DX: N30.90 Cystitis, unspecified without hematuria (principal); K52.9 Noninfective gastroenteritis and colitis, unspecified; N85.8 Other specified noninflammatory disorders of uterus
CPT/HCPCS: 36415; 71045; 74177; 80053; 81001; 83605; 83690; 85025; 86140; 87077; 87086; 87186; 93005; 96374; 96375; 99285; 99291; J2405; J2543; J7030; J9999